=== PATIENT | male | born 1950 | race Caucasian/White ===

== ENCOUNTER → 2021-04-02 | Outpatient (CLI) | payer OTHER ==
[~2021-04-02] MED LIST: ASA81BEC PO; CO-ENZYME Q-1010 MG PO; FISH OIL 1,0001 EAC9 PO; GLUCOSAMINE H1500 MG PO; HYALURONIC ACI1 EACH PO; KETOCONAZOLE 2200 MG PO; LECITHIN1200 MG PO; LIPITOR 40 MG T40 M1 PO; MELOXICAM15 MG PO; METOPROLOL SUCC25 M1 PO; MULTI VITAMIN1 EACH PO; PHOSPHATIDYL S100 GM PO; PROTONIX40 M2 PO; SELENIUM200 MC1 PO; SYNTHROID137 MC1 PO; VESICARE10 M1 PO; VITAMIN B COMP1 EACH PO; VITAMIN E400 UNI6 PO
[2021-04-02 11:38] LABS: HEMATOCRIT 40.8 % (42.0-52.0); MCH 32.7 pg (26.0-34.0); MCHC 34.2 g/dL (28.0-37.0); MCV 95.6 fL (80.0-100.0); RBC 4.27 mil/uL (4.50-6.00); RDW 13.7 % (10.5-14.5); WBC 4.5 thou/uL (4.0-11.0)
[2021-04-02 11:41] LABS: URINE BILIRUBIN NEGATIVE (Negative); URINE BLOOD NEGATIVE (Negative); URINE CLARITY CLEAR; URINE COLOR YELLOW; URINE GLUCOSE-RANDOM* NEGATIVE (Negative); URINE KETONES NEGATIVE (Negative); URINE LEUKOCYTES-REFLEX NEGATIVE (Negative); URINE NITRITE-REFLEX NEGATIVE (Negative); URINE PROTEIN (DIPSTICK) NEGATIVE (Negative); URINE SPECIFIC GRAVITY 1.025 (1.005-1.035); URINE UROBILINOGEN 0.2 E.U./dl (0.2-1.0)
[2021-04-02 11:47] LABS: ALBUMIN 4.3 g/dL (3.4-5.0); CREATININE 1.1 mg/dL (0.7-1.3); POTASSIUM 4.7 mmol/L (3.5-5.1)
[2021-04-02 11:52] LABS: PROTIME 10.9 Seconds (10.5-12.1)
== END ==
LOC: PAC 10:34
PROVIDERS: ATTEND Orthopaedic Surgery
DX: Z01.812 Encounter for preprocedural laboratory examination (principal); M17.12 Unilateral primary osteoarthritis, left knee; Z91.048 Other nonmedicinal substance allergy status

== ENCOUNTER 2021-04-14 12:03 | Day surgery (SDC) | payer OTHER ==
[~2021-04-14] VITALS: Ht 175.3 cm; Wt 84.8 kg
[2021-04-14 13:47] VITALS: BP 158/89
[2021-04-14 18:59] VITALS: BP 121/80
[2021-04-14 21:37] VITALS: BP 12/87
[2021-04-14 21:38] VITALS: BP 126/80
[2021-04-14 21:39] VITALS: BP 118/79; BP 142/93
--- NOTE | 2021-04-14 23:19 | NUR ---
ADMISSION ASSESSMENT COMPLETED. PT STILL FEELS THE LEFT KNEE IS NUMB DUE TO BLOCK. HE IS ABLE TO WIGGLE TOES. GOOD CAP REFILL NOTED. TEDS AND SCDS IN PLACE. HE HAS VOIDED PER URINAL. RATES PAIN AT AROUND 1/10-ACHY, NOT NEEDING ANY PAIN RELIEF. AFEBRILE. ON ROOM AIR, NO COUGH OR SOA NOTED. POLAR SUMAN IN PLACE. MAKES NEEDS KNOWN. NO FURTHER CONCERNS.
[2021-04-15 04:23] VITALS: BP 110/73
[2021-04-15 08:13] VITALS: BP 109/68
--- NOTE | 2021-04-15 09:51 | NUR ---
ASSUMED CARE OF PT AT 0700 THIS MORNING. PT HAD TTL KNEE REPLACEMENT ON LT SIDE. PT WAS A/OX4 THIS MORNING AND READY TO START PHYS THPY. ASSESSMENTS NOTED IN CHART AND OTHERWISE UNREMARKABLE FROM YESTERDAY. PHYS THPY WILL BE WORKING AND EVAL PT. MEDS AND OTHER TX GIVEN NEEDED AND SCHEDULED. FALL PRECAUTIONS IN PLACE. WILL MONITOR AND NOTE ANY CHANGES.
--- NOTE | 2021-04-15 11:50 | NUR ---
INITIAL ASSESSMENT: SW reviewed chart and spoke with nursing. Pt is s/p left TKA. Pt may discharge home later today after second physical therapy session. SW met with pt at bedside. Introduced role of SW. Pt is alert/orientated x 4. Pt reports he lives at home with his . Prior to admission, pt was independent with ADLs. No use of DME. Pt states there are 3 steps to get into the front of the house and then most of his needs can be met on the ground level. No hx of services or post acute placement. Pt's PCP is Dr. Remi Vivar. Pt states that his outpatient physical therapy is scheduled to start tomorrow. Pt will need a roller walker. SW notified [employer] liaison. Walker to be issued prior to discharge. Pt will have transportation home when discharged. No additional SW needs identified at this time, but is available to assist should needs arise.
[2021-04-15 14:22] VITALS: BP 109/68
--- NOTE | 2021-04-19 10:15 | O ---
[facility] [place] [address] OPERATIVE REPORT Name: JUSTIN ALLEN Room #: DEP [facility]..#: [id number] Admission: 04/14/21 Attend Phys: Asher Drew MD Discharge: 04/15/21 Date of : 46 Report #: [id number] THIS REPORT FOR: cc: Remi Vivar MD, Brian G. MD Abraham,Asher Butt MD ~ DATE OF SERVICE: 04/14/2021 PREOPERATIVE DIAGNOSIS: Left knee osteoarthritis. POSTOPERATIVE DIAGNOSIS: Left knee osteoarthritis. PROCEDURE: Left total knee arthroplasty using Navio robotic assistance. SURGEON: Asher Drew M.D. LIFTER DRIVER: Leandra June PA-C. INDICATION FOR LIFTER DRIVER: Throughout the case, extensive retraction, manipulation of the knee was required. This was afforded to me by my assistant merchandise manager. ANESTHESIA: LMA with adductor canal block. IMPLANTS: [employer] size 8 Journey II BCS cobalt chrome femur, size 6 tibia, size 10 constrained polyethylene, and size 35 patella. TOURNIQUET TIME: 51 minutes. ESTIMATED BLOOD LOSS: 25 mL COMPLICATIONS: None. SPECIMENS: None. CONDITION UPON LEAVING THE OR: Stable. INDICATIONS FOR PROCEDURE: The patient is a 70-year-old gentleman with severe left knee osteoarthritis. He had failed conservative measures for this. After discussion with him, he elected for left total knee arthroplasty. DESCRIPTION OF PROCEDURE: Risks, benefits, alternatives, complications were discussed in detail with the patient including but not limited to risk of anesthesia; risk of damage to nerves, arteries, blood vessels; risk for infection, bleeding, DVT, PE; and need for reoperation. Informed consent was obtained from the patient. The left knee was appropriately marked in the preoperative holding area. IV Ancef was given for preoperative antibiotics. He [facility] [address] [place] [address] OPERATIVE REPORT Name: JUSTIN ALLEN ANTONINO Room #: DEP [facility] Leonora#: [id number] Admission: 04/14/21 Attend Phys: Asher Drew MD Discharge: 04/15/21 Date of : 46 Report #: [id number] was brought to the operating room and placed in supine position on the operating room table. LMA anesthesia was induced without complication. Tourniquet was placed on the left thigh. Left lower extremity was prepped and draped in normal sterile fashion. Timeout was performed properly identifying the patient and procedure as well as instrumentation and implants. All in the operating room in agreement. Left lower extremity was exsanguinated, tourniquet was inflated. Tourniquet time was 51 minutes. Standard midline approach to the knee was made with 10 blade through the skin. Dissection was taken down sharply to the fascia and deep flaps were developed medially and laterally. Fresh 10 blade was used to make a medial parapatellar arthrotomy and the knee was inspected. There was severe medial compartment osteoarthritis with moderate lateral and patellofemoral compartment osteoarthritis. ACL and PCL were removed sharply. Reference pins were placed in the femur and the tibia. The knee was digitally mapped using the [employer] robotic system. Intraoperative plan was made. We sized the size 8 femur and size 6 tibia and a 10 spacer. After acceptance of the intraoperative plan, the distal femoral cut was made with Navio bur. Distal femoral cutting block was pinned in place and chamfer cuts were made. Attention was turned to the tibia. Remainder of the menisci removed with Bovie cautery. Tibial resection guide was pinned in place using Navio for placement and tibial resection was made. Medial osteophyte was removed from the tibia. Flexion and extension gaps were then checked and found to have good balance in flexion and extension both medially and laterally. Tibia was sized, found to be a size 6. Size 6 tibial trial was placed, pinned and punched. Size 8 femoral trial was placed and box cut was made. This was then trialed with a size 10 polyethylene. Size 10 polyethylene demonstrated 1 mm laxity medially throughout range of motion of the knee in deep flexion. He did demonstrate up to 3 mm laterally. It was felt we could make up for this with a constrained implant. A 9 mm of bone was resected from the posterior surface of the patella and a size 35 patellar trial button was placed. Knee was taken through range of motion, found to be stable, found to have good patellar tracking. Trial components were removed. Bone ends were thoroughly irrigated with normal saline. Final size 6 tibia, size 8 Journey II BCS cobalt chrome femur, and a size 35 patella were cemented in place using standard cementation techniques. While the cement cured, a periarticular injection consisting of morphine, ropivacaine, epinephrine, Toradol was placed around the knee joint capsule. After the cement cured, the tourniquet was deflated. Hemostasis was obtained with Bovie cautery. A final size 10 constrained polyethylene was placed. A gram of vancomycin was placed deep in the joint. The fascia was closed with 0 Vicryl. Skin was closed with 2-0 Vicryl, skin staple and a SAMI dressing was applied. The patient tolerated this procedure well and went to recovery room under care of anesthesia postoperatively. <ELECTRONICALLY SIGNED> By: Asher Drew MD 04/19/21 1015 [id number] Martinez Drew MD /samantha
== END 2021-04-15 16:08 | disposition home or self-care (01) ==
LOC: OR → 4S 17:52 → OR 04-15 16:08
PROVIDERS: ATTEND Orthopaedic Surgery
DX: M17.12 Unilateral primary osteoarthritis, left knee (principal); M25.562 Pain in left knee; I10 Essential (primary) hypertension; E78.5 Hyperlipidemia, unspecified; K21.9 Gastro-esophageal reflux disease without esophagitis; Z98.890 Other specified postprocedural states; Z79.899 Other long term (current) drug therapy; Z79.01 Long term (current) use of anticoagulants; Z87.442 Personal history of urinary calculi; Z20.822 Contact with and (suspected) exposure to COVID-19; Z95.2 Presence of prosthetic heart valve; Z85.46 Personal history of malignant neoplasm of prostate; Z85.51 Personal history of malignant neoplasm of bladder
CPT/HCPCS: 50010; 50101; 50415; 50954; 51130; 51225; 51320; 51412; 53000; 53078; 54118; 56527; 56528; 57095; 57103; 57110; 57127; 57180; 58239; 62110; 62900; 64042; 70005